=== PATIENT | male | born 1970 | race Caucasian/White ===

== ENCOUNTER 2024-05-05 00:13 | Inpatient (IN) | payer MEDICARE, MEDICAID, SELFPAY ==
--- NOTE | 2024-05-05 | ECG_ITS ---
Test Reason : AMS Blood Pressure : */* mmHG Vent. Rate : 71 BPM Atrial Rate : 71 BPM P-R Int : 140 ms QRS Dur : 98 ms QT Int : 444 ms P-R-T Axes : 84 85 80 degrees QTcB Int : 482 ms Normal sinus rhythm Prolonged QT Abnormal ECG No previous ECGs available Referred By: Generic ED Physician Electronically Signed By: Handy Church
[2024-05-05 00:17] VITALS: BP 164/95; PULSE 80; O2SAT 100
[2024-05-05 00:21] VITALS: BP 158/99; PULSE 68; RESP 18; TEMP 36.4; O2SAT 100; BMI 19.0
--- NOTE | 2024-05-05 01:06 | PC.NURSE ---
pt refusing to provide labs or urine. not oriented to place/ situation. not cooperative when asked questions by staff. would not allow IV to be removed, yells you can take this out when you tell me who i am MD at bedside. pt states he is the dark lord and needs to go to the [facility] to fulfil his role...? pt escorted to the POD, IV removed, exchange operator completed
--- NOTE | 2024-05-05 01:15 | PC.NURSE ---
Patient brought to pod by security and nursing staff. Patient goes by The Dark Lord. and wanted to be brought to his [facility]. Patient subsequently brought to the behavioral health pod. Changed over into green brandon and belongings inventoried.
--- NOTE | 2024-05-05 01:20 | PC.NURSE ---
patient refues to give urine sample and states he needs to be taken to his [facility] immediately. Patient currently naked in room, refusing to wear brandon.
[2024-05-05 01:21] LABS: MANUAL DIFF FLAG NO
[2024-05-05 01:22] LABS: Basophils Absolute Auto 0.1 X10*3/uL (0.0-0.2); Basophils Percent Auto 0.6 % (0-2); Eosinophils Absolute Auto 0.2 X10*3/uL (0.0-0.4); Eosinophils Percent Auto 2.7 % (0-4); Hematocrit 39.5 % (42.0-52.0); Hemoglobin 13.9 g/dl (14.0-18.0); Imm Gran Abs Auto 0.03 X10*3/uL (0.00-0.03); Imm Gran Pct Auto 0.4 % (0.0-0.4); Lymphocytes Percent Auto 24.1 % (20-40); Mean Corpuscular HGB Conc 35.2 g/dl (31.0-36.0); Mean Corpuscular Hemoglobin 33.9 pg (27.0-33.0); Mean Corpuscular Volume 96.3 fL (80.0-98.0); Mean Platelet Volume 8.8 fL (9.4-12.4); Monocytes Percent Auto 12.3 % (2-11); Neutrophils Absolute Auto 5.1 x10*3/uL (2.0-8.3); Neutrophils Percent Auto 59.9 % (45-73); Platelet Count 228 X10*3/uL (160-400); Red Cell Distribution Width 12.1 % (11.0-16.0); White Blood Count 8.5 X10*3/uL (4.8-10.8)
--- NOTE | 2024-05-05 01:32 | PC.NURSE ---
Stefani non-compliant, refusing to wear clothes, refusing to stay in room due to being non-clothed. IM's administered in right and left deltoids. Patient at this time will not stay in his room, security assisted with holding of the patient for safety of staff. Security also assisted in getting patient into room and giving food and hydration. Currently as of 015 patient is in room but naked.
[2024-05-05] MEDS: Haloperidol Lactate 5 MG/ML VIAL IM (01:34)
[2024-05-05] MEDS: diphenhydrAMINE HCL 50 MG/ML VIAL IM (01:34)
[2024-05-05] MEDS: LORazepam 2 MG/ML VIAL IM (01:34)
[2024-05-05 01:44] LABS: Troponin-I High Sensitivity 3.8 ng/L (<3.5-35.0)
--- NOTE | 2024-05-05 01:45 | PC.NURSE ---
patient belongings in locker 3
[2024-05-05 01:48] LABS: Alanine Aminotransferase 22 U/L (0-40); Alkaline Phosphatase 63 U/L (39-117); Anion Gap 14 (12-20); Aspartate Amino Transferase 63 U/L (5-37); Bilirubin Total 1.1 mg/dL (0.0-1.0); Blood Urea Nitrogen 17 mg/dL (9-16); Carbon Dioxide 25 mmol/L (22-29); Chloride 105 mmol/L (96-108); Creatinine Clr Calc Pharmacy 100.7; Estimated Glomerular Filt Rate > 60; Ethanol < 10 mg/dL; Glucose Random 86 mg/dL (60-115); Sodium 140 mmol/L (135-145); Total Protein 7.7 g/dL (6.5-8.0)
[2024-05-05 01:52] LABS: Acetaminophen LAB < 3 mcg/mL (<30); Salicylate < 5.0 mg/dL (15-30)
--- NOTE | 2024-05-05 02:31 | ED_ITS ---
HPI - Psych General Chief Complaint: Psychiatric Symptoms Stated Complaint: AMS Time Seen by Provider: 05/05/24 01:00 Source: EMS Mode of arrival: EMS Limitations: other ( Delusional) History of Present Illness ED Provider: Dr. Sara Tellez HPI Narrative: patient comes to the emergency room via ambulance. Patient was found in [facility] [address] patient was not answering questions appropriately. per EMS, the patient reported that he has not taking his medications for bipolar disorder. Patient denies drug use. Denies SI or HI. When I spoke to the patient, patient states that he does not want to be called Chandrakant, patient states that he is the dark lord and is requesting that we take him to his [facility]. overall, patient can not give a significant history, patient is very delusional, talking in tangents and not making any sense Related Data Allergies Allergy/AdvReac Type Severity Reaction Status Date / Time No Known Allergies Allergy Verified 05/05/24 00:24 Review of Systems 2 Review of Systems: Yes Other [facility] Past Medical History Medical History (Updated 05/05/24 @ 02:41 by Sara Tellez MD) Bipolar 1 disorder Physical Exam 2 Vital Signs: Vital Signs: Last Vital Signs Temp 97.5 F 05/05/24 00:21 Pulse 68 05/05/24 00:21 Resp 18 05/05/24 00:21 BP 158/99 H 05/05/24 00:21 Pulse Ox 100 05/05/24 00:21 O2 Del Method Room Air 05/05/24 00:21 BMI result Body Mass Index 19.0 Const: Other: Appearance: Alert. staring into the hyde or the roof Eyes: Pupils equal, round and reactive to light. ENT: Pharynx normal. Neck: Normal inspection. Neck supple. No lymph nodes noted. No crepitus CVS: Normal heart rate and rhythm. Pulses normal. Normal S1 and S2 Respiratory: No respiratory distress. Breath sounds normal. No Wheezing. No rales Abdomen: Soft and nontender. No rigidity. No distention. Skin: Skin warm and dry. Normal skin color. Normal skin turgor. Extremities: No lower extremity edema. No Lacerations. No Rash Neuro: Oriented X 3. No motor deficit. No sensory deficit. Moving all extremities. No slurred speech. CN 2 through 12 grossly intact Psych: calm, bizarre affect Medications Administered Discontinued Medications Generic Name Dose Route Start Last Admin Trade Name Teetee PRN Reason Stop Dose Admin Diphenhydramine HCl 50 mg 05/05/24 01:26 05/05/24 01:34 Diphenhydramine Hcl 50 Mg/Ml Vial IM 05/05/24 01:27 50 mg ONCE ONE Administration Haloperidol Lactate 5 mg 05/05/24 01:27 05/05/24 01:34 Haloperidol Lactate 5 Mg/Ml Vial IM 05/05/24 01:28 5 mg STAT STA Administration Lorazepam 2 mg 05/05/24 01:27 05/05/24 01:34 Lorazepam 2 Mg/Ml Vial IM 05/05/24 01:28 2 mg STAT STA Administration Medical Decision Making Medical Decision Making [facility] Narrative: on arrival, patient refused any labs. Patient is only request was to be taken to his [facility] when patient was in the [facility] pod, patient insisted on getting naked and walking around uncovered pick as he needed to be freed, patient refills closing. Eventually, patient was given IM Haldol, Ativan and Benadryl. Patient was agreeable to get IM meds. patient allowed the text to drop what. So far we do not have urine. no significant abnormality in patient's hematology and chemistry, ETOH level negative, urine toxicology pending care team consult pending Patient is on a Section 12. Patient is clearly significantly decompensated and will need inpatient level of care Differential Diagnosis Differential Diagnoses: The differential diagnosis associated with the presentation includes ( bipolar, schizophrenia, delusional) Admission/Observation Consideration of admission/observation: Escalation of care including admission/observation considered ( patient will need inpatient level of care) Lab Data [facility] Lab Attestation statement: I reviewed the patient's lab results. 05/05/24 01:17 05/05/24 01:17 Labs: Lab Results 05/05/24 05/05/24 Range/Units 01:16 01:17 WBC 8.5 (4.8-10.8) X10*3/uL RBC 4.10 L (4.60-5.80) X10*6/uL Hgb 13.9 L (14.0-18.0) g/dl Hct 39.5 L (42.0-52.0) % MCV 96.3 (80.0-98.0) fL MCH 33.9 H (27.0-33.0) pg MCHC 35.2 (31.0-36.0) g/dl RDW 12.1 (11.0-16.0) % Plt Count 228 (160-400) X10*3/uL MPV 8.8 L (9.4-12.4) fL Immature Gran % (Auto) 0.4 (0.0-0.4) % Neut % (Auto) 59.9 (45-73) % Lymph % (Auto) 24.1 (20-40) % [place] % (Auto) 12.3 H (2-11) % Eos % (Auto) 2.7 (0-4) % Baso % (Auto) 0.6 (0-2) % Lymph # (Auto) 2.0 (1.2-4.9) X10*3/uL [place] # (Auto) 1.0 (0.1-1.2) X10*3/uL Eos # (Auto) 0.2 (0.0-0.4) X10*3/uL Baso # (Auto) 0.1 (0.0-0.2) X10*3/uL Abs Immat Gran (auto) 0.03 (0.00-0.03) X10*3/uL Absolute Neuts (auto) 5.1 (2.0-8.3) x10*3/uL Absolute Nucleated RBC 0.000 (0.0-0.012) X10*3/uL Nucleated RBC % (auto) 0.0 (0.0-0.2) /100WBC Sodium 140 (135-145) mmol/L Potassium 4.0 (3.3-5.1) mmol/L Chloride 105 (96-108) mmol/L Carbon Dioxide 25 (22-29) mmol/L Anion Gap 14 (12-20) BUN 17 H (9-16) mg/dL Creatinine 0.77 (0.5-1.4) mg/dL Estim Creat Clear Calc 100.7 Estimated GFR > 60 Random Glucose 86 (60-115) mg/dL Calcium 9.0 (8.4-10.2) mg/dL Total Bilirubin 1.1 H (0.0-1.0) mg/dL AST 63 H (5-37) U/L ALT 22 (0-40) U/L Alkaline Phosphatase 63 (39-117) U/L Troponin I High Sens 3.8 (<3.5-35.0) ng/L Total Protein 7.7 (6.5-8.0) g/dL Albumin 4.0 (3.5-5.0) g/dL Salicylates < 5.0 L (15-30) mg/dL Acetaminophen < 3 (<30) mcg/mL Ethyl Alcohol < 10 mg/dL Critical Care Time Critical Care Time Critical Care Time: Yes Total Critical Care Time: 60 Attestation: I have personally provided critical care time. Time includes review of lab data, radiology results, discussion with consultants, and monitoring for potential decompensation. Intervention performed as documented. Discharge Plan Discharge Clinical Impression: Delusional ideas Patient Disposition: Still a Patient Interventions: Guthrie-Suicide Risk Severity Scale Last Done: 05/05/24 01:23 Print Language: Argentine
--- NOTE | 2024-05-05 02:36 | PC.NURSE ---
patient resting on Bed 3: non labored respirations with chest rise and fall noted. Will continue to monitor
[2024-05-05 05:35] VITALS: RESP 20
--- NOTE | 2024-05-05 05:36 | PC.NURSE ---
patient refused vital signs
[2024-05-05 05:43] LABS: Appearance Urine Clear; Color Urine Yellow; Glucose Urine UA Negative (Negative); Leukocyte Esterase Urine Negative (Negative); Nitrite Urine Negative (Negative); PH 6.5 (5.0-9.0); Specific Gravity - Urine 1.015 (1.005-1.025); UMIC TRIGGER UACC YES; Urine Blood Negative (Negative); Urine Ketones Negative (Negative); Urine Protein 30 (1+) mg/dL (Neg-Trace)
[2024-05-05 06:00] LABS: Amphetamine Screen Urine Not Detected (Not Detect); Barbiturates, Urine Not Detected (Not Detect); Benzodiazepines Screen Urine Not Detected (Not Detect); Buprenorphine Scr Not Detected (Not Detect); Cannabinoid Screen Urine Not Detected (Not Detect); Cocaine Screen Urine POSITIVE (Not Detect); Fentanyl, urine Not Detected (Not Detect); Methadone Screen, Urine Not Detected (Not Detect); Opiate Screen Urine Not Detected (Not Detect); Oxycodone Screen Urine Not Detected (Not Detect); Phencyclidine Screen Urine Not Detected (Not Detect)
[2024-05-05 06:01] LABS: Bacteria Urine None Seen (None Seen); RBC Urine 0-2 /HPF (0-2); Squamous Epithelial Cell Urine 0-2 /HPF (0-2); WBC Urine 0-5 /HPF (0-5)
--- NOTE | 2024-05-05 09:00 | ECG_ITS ---
Test Reason : CHECK PROLONG QT Blood Pressure : */* mmHG Vent. Rate : 79 BPM Atrial Rate : 79 BPM P-R Int : 126 ms QRS Dur : 96 ms QT Int : 410 ms P-R-T Axes : 83 89 88 degrees QTcB Int : 470 ms Normal sinus rhythm Normal ECG When compared with ECG of 05-May-2024 00:32, No significant change was found Referred By: Bhargavi Cash Electronically Signed By: Handy Church
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
--- NOTE | 2024-05-05 10:50 | MHC.CARE ---
Pt meets the criteria for IPLOC. Section 12a in chart. Provider in agreement.
--- NOTE | 2024-05-05 12:33 | PHA.MEDREC ---
Addendum entered by Sridhar Min [facility] 05/05/24 12:55: MED REC CHECKED BY [facility] Original Note: Pharmacy Consult ? Medication Reconciliation Pharmacy reviewed med rec done by nursing. Claims matches what is confirmed.
--- OUTSIDE RECORDS SUMMARY | 2024-05-05 13:09 | XMS_ITS | Clinical Summary ---
Author Organization [facility] [place] [address] Care Team Providers Care Jewel Corner Brushing Machine Operator Name Role Phone Unknown Primary Care Provider Unavailabl e Social History Tobacco Use Types Packs/Day Years Used Date Smoking Tobacco: Never Assessed Sex and Gender Information Value Date Recorded Sex Assigned at Not on file Gender Identity Not on file Sexual Orientation Not on file Plan of Treatment Health Maintenance Due Date Last Done Comments CT Colonography 1972 Colonoscopy 1972 Colorectal Cancer Screening 1972 FIT DNA 1972 FIT 1972 Sigmoidoscopy (10 year) with FIT yearly 1972 Sigmoidoscopy 1972 HIV screen 1990 Hepatitis C Screening 1990 Lipid Screening 1990 Hepatitis B vaccine (0-59 yrs) (1) 1991 Tetanus/Diphtheria/Pertussis Vaccines (1 - Tdap) 04/27 Pneumoccocal Vaccine: 50+ (1 of 1 - PCV) 2022 Zoster vaccine (1 of 2) 2022 Covid-19 Vaccine (1 - 2023- season) 2023 Influenza (Flu) vaccine (1 o f 1 - Influenza standard series) 11/08/2023 Care Teams Jewel Corner Brushing Machine Operator Relationship Specialty Start Date End Date Unknown None PCP - General 07/07/22
[2024-05-05 13:26] VITALS: BP 140/88; PULSE 76; RESP 16; TEMP 37; O2SAT 99
--- NOTE | 2024-05-05 13:34 | PC.NURSE ---
Family is here visiting gave his sister keys and wallet per security.
--- NOTE | 2024-05-05 14:04 | PC.NURSE ---
Assumed care of patient at 1345, patient appears to be in no apparent distress at this time, family member at bedside. Patient is calm and cooperative. Awaiting transport to floor
[2024-05-05 15:54] VITALS: BP 131/76; PULSE 102; RESP 18; TEMP 37.7; BMI 19.9
[2024-05-05] MEDS: Nicotine Polacrilex 2 MG GUM 4 MG BUCCAL (16:06)
[2024-05-05] MEDS: Nicotine 21 MG PATCH.TD24 TRANSDERMA (16:07)
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
--- NOTE | 2024-05-05 17:15 | PC.NURSE ---
Pt reported nicotine use. Smoking consult order in place and NRT ordered. Pt refused the Influenza vaccine.
[2024-05-05 19:46] VITALS: BP 131/79; PULSE 80; TEMP 38.3; O2SAT 97
[2024-05-05] MEDS: QUEtiapine Fumarate 50 MG TABLET PO (20:42)
[2024-05-05] MEDS: OLANZapine 5 MG TABLET PO (20:42)
[2024-05-06 08:00] VITALS: BP 160/88; PULSE 72; TEMP 37.3; O2SAT 98
[2024-05-06] MEDS: lamoTRIgine 25 MG TABLET PO (09:07)
--- NOTE | 2024-05-06 11:16 | HO.PSYADMNOT ---
HPI Date of Service: 05/06/24 Chief Complaint: Disorganized Sources of Information: patient interviewed, chart reviewed and crisis/core team assessment reviewed HPI Subjective Notes: Gill Warning, Conditional Voluntary and 3 Day Healthcare Proxy: No Guardianship: No Medical Problems Affecting Mental Status: No Narrative: 54 yo male, history of schizoaffective disorder, bipolar type, from [place], [place] [address] staring at a truck. Pt was disoriented, delusional, tangential, hypersexual. Crisis team in [place] verifies they know pt and that he will not take medicine and has not taken any medicine in several months. Pt is significantly thin and clearly has not been caring for himself. Pt lives with his mother in [place]. Reports he has visions, messages and dreams of different things, medicine makes them not available, so he chooses no medicine. Pt adds that he thinks he may be Lucifer. He does not want to be in hospital as it impeeds his freedom to do what he wants to do. Past Psychiatric History: IP: +hx- BBR, OP: unclear SA: affirms Bipolar diagnosed in 2014 Medical Evaluation Reviewed: Yes [facility] Medical History (Updated 05/06/24 @ 18:40 by Bhargavi Cash APRN) Schizoaffective disorder, bipolar type Bipolar 1 disorder Social History: Born in [place], lived in [place] and [place] with family. Raised by both parents and brother. Parents GED. Moved to [place] and lives on the [place] with others Never , no children Substance History: positive cocaine tox Diagnostics Vital Signs (24Hr): Vital Signs - 24 hr 05/05/24 13:26 05/05/24 15:54 05/05/24 19:46 Temperature 98.6 F 99.8 F 100.9 F H Pulse Rate 76 102 H 80 Respiratory Rate 16 18 Blood Pressure 140/88 H 131/76 131/79 Pulse Oximetry 99 97 Oxygen Delivery Method Room Air Room Air Oxygen Flow Rate 97 05/06/24 08:00 Temperature 99.1 F Pulse Rate 72 Respiratory Rate Blood Pressure 160/88 H Pulse Oximetry 98 Oxygen Delivery Method Room Air Oxygen Flow Rate BMI result Body Mass Index 19.9 Labs 05/05/24 01:17 05/05/24 01:17 Labs: Laboratory Results - last 48 hr 02/05/05/24 05/05/24 01:16 01:17 05:36 WBC 8.5 RBC 4.10 L Hgb 13.9 L Hct 39.5 L MCV 96.3 MCH 33.9 H MCHC 35.2 RDW 12.1 Plt Count 228 MPV 8.8 L Immature Gran % (Auto) 0.4 Neut % (Auto) 59.9 Lymph % (Auto) 24.1 [place] % (Auto) 12.3 H Eos % (Auto) 2.7 Baso % (Auto) 0.6 Lymph # (Auto) 2.0 [place] # (Auto) 1.0 Eos # (Auto) 0.2 Baso # (Auto) 0.1 Abs Immat Gran (auto) 0.03 Absolute Neuts (auto) 5.1 Absolute Nucleated RBC 0.000 Nucleated RBC % (auto) 0.0 Sodium 140 Potassium 4.0 Chloride 105 Carbon Dioxide 25 Anion Gap 14 BUN 17 H Creatinine 0.77 Estim Creat Clear Calc 100.7 Estimated GFR > 60 Random Glucose 86 Calcium 9.0 Total Bilirubin 1.1 H AST 63 H ALT 22 Alkaline Phosphatase 63 Troponin I High Sens 3.8 Total Protein 7.7 Albumin 4.0 Urine Color Yellow Urine Appearance Clear Urine pH 6.5 Ur Specific Wilson 1.015 Urine Protein 30 (1+) H Urine Glucose (UA) Negative Urine Ketones Negative Urine Blood Negative Urine Nitrite Negative Ur Leukocyte Esterase Negative Urine RBC 0-2 Urine WBC 0-5 Ur Squamous Epith Cells 0-2 Urine Bacteria None Seen Hyaline Casts 3-5 Salicylates < 5.0 L Urine Opiates Screen Not Detected Ur Buprenorphine Scrn Not Detected Ur Oxycodone Screen Not Detected Urine Methadone Screen Not Detected Urine Fentanyl Screen Not Detected Acetaminophen < 3 Ur Barbiturates Screen Not Detected Ur Phencyclidine Scrn Not Detected Ur Amphetamines Screen Not Detected U Benzodiazepines Scrn Not Detected Urine Cocaine Screen POSITIVE H U Marijuana (THC) Screen Not Detected Ethyl Alcohol < 10 Meds/Allergies Meds Home Medications ?Medication ?Instructions ?Recorded ?Confirmed ?Type bupropion HCl 300 mg 24 hr tablet, 300 mg PO DAILY 05/05/24 05/05/24 History extended release lamotrigine 25 mg tablet 25 mg DAILY 05/05/24 05/05/24 History quetiapine 50 mg tablet 50 mg PO BEDTIME sleep disorder 05/05/24 05/05/24 History risperidone microspheres 50 mg/2 50 mg IM Q2W 05/05/24 05/05/24 History mL intramuscular susp,ext release (Risperdal Consta) Allergies Allergies Allergy/AdvReac Type Severity Reaction Status Date / Time No Known Allergies Allergy Verified 05/05/24 00:24 Mental Status Exam Mental Status Exam Patient Appearance: Fatigued Patient Orientation: Person, Place and Situation Level of Consciousness: Alert Patient Behavior: Talkative and Resistive to Care Mood Description: Constricted Affect Description: Constricted Patient Cognition Impaired: No Ability to Follow Directions: Good Speech Pattern: Spontaneous Speech Memory Description: Remote Impaired Hallucinations: Auditory and Visual Delusions: Paranoid Ideation, Grandiose and Present Thought Process: Illogical and Distracted Thought Content: positive for Flight of Ideas, positive for Perseveration, positive for Tangential, positive for Disorganized and positive for Evasive Depressive Symptoms: Difficulty Sleeping Judgement: Poor Assessment & Plan Assessment & Plan (1) Schizoaffective disorder, bipolar type: Status: Acute Code(s): F25.0 - Schizoaffective disorder, bipolar type Plan Admit, CV, 3 day notice,15 minute checks Attempt alliance Meds are ordered, pt reports he has no interest Collateral contact Diagnostics as needed Patient educated on: medication risk/benefits and therapeutic strategies Reason for continued inpatient stay Substantial Risk for: rapid decompensation Statement Statement: I have reviewed the history and physical and performed a pertinent examination on my patient. No changes have occurred unless specified. If the History and Physical was not performed prior to admission, the Hospitalist's service will be consulted for completing the admission physical. Time Spent With Patient Time: Total time managing care of this patient today ____ minutes.
[2024-05-06] MEDS: Nicotine 21 MG PATCH.TD24 TRANSDERMA (18:14)
[2024-05-06 20:00] VITALS: BP 134/63; PULSE 75; TEMP 35.9; O2SAT 97
[2024-05-06] MEDS: QUEtiapine Fumarate 50 MG TABLET PO (21:11)
[2024-05-07 08:00] VITALS: BP 127/73; PULSE 69; RESP 16; TEMP 36.6; O2SAT 98
[2024-05-07] MEDS: lamoTRIgine 25 MG TABLET PO (10:56)
[2024-05-07] MEDS: Nicotine Polacrilex 2 MG GUM 4 MG BUCCAL (10:56)
[2024-05-07] MEDS: Nicotine 21 MG PATCH.TD24 TRANSDERMA (10:56)
[2024-05-07 11:36] LABS: Cholesterol 115 mg/dL (<200); HDL Cholesterol 52 mg/dL (>40); LDL Cholesterol Calculated 54 mg/dL (<100); Triglycerides 49 mg/dL (<150)
[2024-05-07 11:56] LABS: Free T4 (Free Thyroxine) 1.12 ng/dL (0.71-1.85); TSH reflex Free T4 0.53 uIU/mL (0.32-4.0)
[2024-05-07 12:05] LABS: Folate 6.7 ng/mL (> or = 4.0); Vitamin B12 401 pg/mL (200-900)
[2024-05-07 12:17] LABS: Estimated Average Glucose 97 mg/dL; Hemoglobin A1C 115.8845 umol/L
--- NOTE | 2024-05-07 18:14 | HO.PSYCHPN ---
Subjective Subjective Date of Service: 05/07/24 Reason For Visit: Disorganized Interim History: no questions or complaints. per staff, manic/hypersexual. refusing meds. sleeping well. Mental Status Exam Mental Status Exam Patient Appearance: Fatigued Patient Orientation: Person, Place and Situation Level of Consciousness: Alert Patient Behavior: Resistive to Care Mood Description: Constricted Affect Description: Constricted Patient Cognition Impaired: No Ability to Follow Directions: Good Speech Pattern: Spontaneous Speech Memory Description: Remote Impaired Hallucinations: Auditory and Visual Delusions: Paranoid Ideation, Grandiose and Present Thought Process: Illogical and Distracted Thought Content: positive for [place] Judgement: Poor Diagnostics Vital Signs (24Hr): Vital Signs - 24 hr 05/06/24 20:00 05/07/24 08:00 Temperature 96.7 F L 97.9 F Pulse Rate 75 69 Respiratory Rate 16 Blood Pressure 134/63 127/73 Pulse Oximetry 97 98 Oxygen Delivery Method Room Air BMI result Body Mass Index 19.9 Labs 05/05/24 01:17 05/05/24 01:17 Labs: Laboratory Results - last 48 hr 05/07/24 10:54 Estimat Average Glucose 97 Hemoglobin A1c % 5.0 Magnesium 2.0 Triglycerides 49 Cholesterol 115 LDL Cholesterol, Calc 54 HDL Cholesterol 52 Vitamin B12 401 Folate 6.7 TSH 0.53 Free T4 1.12 Medications Medications Current Medications Acetaminophen (Acetaminophen 325 Mg Tablet) 650 mg PO Q6H PRN PRN Reason: Headache/Pain, Scale 1-10 Al Hydroxide/Mg Hydroxide (Magnesium Hydrox/Alum Hydrox 30 Ml Oral.Susp) 30 ml PO Q6H PRN PRN Reason: Heartburn/Nausea Al Hydroxide/Mg Hydroxide (Magnesium Hydrox/Alum Hydrox 30 Ml Oral.Susp) 30 ml PO Q6H PRN PRN Reason: Heartburn/Nausea Hydroxyzine HCl (Hydroxyzine Hcl 25 Mg Tablet) 25 mg PO Q6H PRN PRN Reason: mild anxiety Lamotrigine (Lamotrigine 25 Mg Tablet) 25 mg PO DAILY DILLON Last Admin: 05/07/24 10:56 Dose: 25 mg Magnesium Hydroxide (Milk Of Magnesia 30 Ml Oral.Susp) 30 ml PO DAILY PRN PRN Reason: Constipation Magnesium Hydroxide (Milk Of Magnesia 30 Ml Oral.Susp) 30 ml PO DAILY PRN PRN Reason: Constipation Nicotine (Nicotine 21 Mg Patch.Td24) 21 mg TRANSDERMA DAILY PRN PRN Reason: smoking cessation Last Admin: 05/07/24 10:56 Dose: 21 mg Nicotine Polacrilex (Nicotine Polacrilex 2 Mg Gum) 4 mg BUCCAL Q2H PRN PRN Reason: Nicotine Cravings Last Admin: 05/07/24 10:56 Dose: 4 mg Olanzapine (Olanzapine 5 Mg Tablet) 5 mg PO TID PRN PRN Reason: agitation Last Admin: 05/05/24 20:42 Dose: 5 mg Quetiapine Fumarate (Quetiapine Fumarate 50 Mg Tablet) 50 mg PO BEDTIME DILLON Last Admin: 05/06/24 21:11 Dose: 50 mg Trazodone HCl (Trazodone Hcl 50 Mg Tablet) 50 mg PO BEDTIME [id number] PRN PRN Reason: Insomnia Allergies Allergies Allergy/AdvReac Type Severity Reaction Status Date / Time No Known Allergies Allergy Verified 05/05/24 00:24 Assessment & Plan Assessment & Plan (1) Schizoaffective disorder, bipolar type: Status: Acute Code(s): F25.0 - Schizoaffective disorder, bipolar type Plan Admit, CV, 3 day notice,15 minute checks Attempt alliance Meds are ordered, pt reports he has no interest Collateral contact Diagnostics as needed 05/07: no disruptive behaviors since admission. refusing medications. sleeping. continue to offer medications. Reason for continued inpatient stay Substantial Risk for: inability to function and rapid decompensation Time Spent With Patient Time: Total time managing care of this patient today ____ minutes.
[2024-05-07 20:00] VITALS: RESP 16
[2024-05-07] MEDS: QUEtiapine Fumarate 50 MG TABLET PO (20:55)
[2024-05-08 08:00] VITALS: BP 136/80; PULSE 68; RESP 14; TEMP 37.3; O2SAT 99
[2024-05-08] MEDS: Nicotine 21 MG PATCH.TD24 TRANSDERMA (09:06)
[2024-05-08] MEDS: lamoTRIgine 25 MG TABLET PO (09:06)
--- NOTE | 2024-05-08 15:55 | HO.PSYCHPN ---
Subjective Subjective Date of Service: 05/08/24 Reason For Visit: Disorganized Interim History: sleeping, rousable. no questions or complaints. per staff, taking medications. c/o shoulder pain. Mental Status Exam Mental Status Exam Patient Appearance: Fatigued Patient Orientation: Person, Place and Situation Level of Consciousness: Alert Mood Description: Constricted Affect Description: Constricted Patient Cognition Impaired: No Ability to Follow Directions: Good Speech Pattern: Spontaneous Speech Memory Description: Remote Impaired Hallucinations: Auditory and Visual Delusions: Paranoid Ideation, Grandiose and Present Thought Process: Illogical and Distracted Thought Content: positive for [place] Judgement: Poor Diagnostics Vital Signs (24Hr): Vital Signs - 24 hr 05/07/24 20:00 05/08/24 08:00 Temperature 99.1 F Pulse Rate 68 Respiratory Rate 16 14 Blood Pressure 136/80 Pulse Oximetry 99 Oxygen Delivery Method Room Air BMI result Body Mass Index 19.9 Labs 05/05/24 01:17 05/05/24 01:17 Labs: Laboratory Results - last 48 hr 05/07/24 10:54 Estimat Average Glucose 97 Hemoglobin A1c % 5.0 Magnesium 2.0 Triglycerides 49 Cholesterol 115 LDL Cholesterol, Calc 54 HDL Cholesterol 52 Vitamin B12 401 Folate 6.7 TSH 0.53 Free T4 1.12 Medications Medications Current Medications Acetaminophen (Acetaminophen 325 Mg Tablet) 650 mg PO Q6H PRN PRN Reason: Headache/Pain, Scale 1-10 Al Hydroxide/Mg Hydroxide (Magnesium Hydrox/Alum Hydrox 30 Ml Oral.Susp) 30 ml PO Q6H PRN PRN Reason: Heartburn/Nausea Al Hydroxide/Mg Hydroxide (Magnesium Hydrox/Alum Hydrox 30 Ml Oral.Susp) 30 ml PO Q6H PRN PRN Reason: Heartburn/Nausea Hydroxyzine HCl (Hydroxyzine Hcl 25 Mg Tablet) 25 mg PO Q6H PRN PRN Reason: mild anxiety Lamotrigine (Lamotrigine 25 Mg Tablet) 25 mg PO DAILY ON LICENSE OF [facility] Last Admin: 05/08/24 09:06 Dose: 25 mg Magnesium Hydroxide (Milk Of Magnesia 30 Ml Oral.Susp) 30 ml PO DAILY PRN PRN Reason: Constipation Magnesium Hydroxide (Milk Of Magnesia 30 Ml Oral.Susp) 30 ml PO DAILY PRN PRN Reason: Constipation Nicotine (Nicotine 21 Mg Patch.Td24) 21 mg TRANSDERMA DAILY PRN PRN Reason: smoking cessation Last Admin: 05/08/24 09:06 Dose: 21 mg Nicotine Polacrilex (Nicotine Polacrilex 2 Mg Gum) 4 mg BUCCAL Q2H PRN PRN Reason: Nicotine Cravings Last Admin: 05/07/24 10:56 Dose: 4 mg Olanzapine (Olanzapine 5 Mg Tablet) 5 mg PO TID PRN PRN Reason: agitation Last Admin: 05/05/24 20:42 Dose: 5 mg Quetiapine Fumarate (Quetiapine Fumarate 50 Mg Tablet) 50 mg PO BEDTIME DILLON Last Admin: 05/07/24 20:55 Dose: 50 mg Trazodone HCl (Trazodone Hcl 50 Mg Tablet) 50 mg PO BEDTIME MRX1 PRN PRN Reason: Insomnia Allergies Allergies Allergy/AdvReac Type Severity Reaction Status Date / Time No Known Allergies Allergy Verified 05/05/24 00:24 Assessment & Plan Assessment & Plan (1) Schizoaffective disorder, bipolar type: Status: Acute Code(s): F25.0 - Schizoaffective disorder, bipolar type Plan Admit, CV, 3 day notice,15 minute checks Attempt alliance Meds are ordered, pt reports he has no interest Collateral contact Diagnostics as needed 3/1: no disruptive behaviors since admission. refusing medications. sleeping. continue to offer medications. 3/2: same presentation as yesterday, although per RN report now taking meds. c/o shoulder pain, start lidocaine patch and ibu PRN. otherwise continue current mgmt. Reason for continued inpatient stay Substantial Risk for: inability to function Time Spent With Patient Time: Total time managing care of this patient today ____ minutes.
[2024-05-08 20:00] VITALS: BP 125/70; PULSE 82; TEMP 36.9; O2SAT 97
[2024-05-08] MEDS: QUEtiapine Fumarate 50 MG TABLET PO (21:32)
[2024-05-08] MEDS: traZODone HCL 50 MG TABLET PO (21:43)
[2024-05-08] MEDS: Ibuprofen 600 MG TABLET PO (21:43)
[2024-05-08] MEDS: Lidocaine 4 % Patch ADH..PATCH 1 PATCH TRANSDERMA (21:44)
[2024-05-09] MEDS: traZODone HCL 50 MG TABLET PO (01:48)
[2024-05-09 07:59] VITALS: BP 127/70; PULSE 87; TEMP 536.6; TEMP 998; O2SAT 98
[2024-05-09 08:31] VITALS: TEMP 36.9
[2024-05-09] MEDS: lamoTRIgine 25 MG TABLET PO (09:07)
[2024-05-09] MEDS: Acetaminophen 325 MG TABLET 650 MG PO ×2 (09:07→18:19)
--- NOTE | 2024-05-09 09:40 | HO.PSYCHPN ---
Subjective Subjective Date of Service: 05/09/24 Reason For Visit: Disorganized Subjective Notes: Conditional Voluntary and 3 Day Healthcare Proxy: No Guardianship: No Medical Problems Affecting Mental Status: No Interim History: Pt reports he is improved. I am OK, good really. He denies AH,VH, SI, HI. Taking medicine! He is prepared to leave, stating his family will come from [place] to drive him home. I have been gone long enough. I need to get back and help my mother . Reports sleep/appetite are appropriate. L shoulder with pain, declines eval, I think I slept on it wrong . Medication Compliance: Yes Side effects from medications: No Attending Groups: No Review of Systems Acute medical concerns: Yes L Shoulder pain Medical Review of Systems: unchanged Review of Systems Review of Systems L Shoulder pain Mental Status Exam Mental Status Exam Patient Appearance: Fatigued Patient Orientation: Person, Place, Time and Situation Level of Consciousness: Alert Patient Behavior: Talkative, Cooperative and Good Eye Contact Mood Description: Constricted Affect Description: Constricted Patient Cognition Impaired: No Ability to Follow Directions: Good Speech Pattern: Spontaneous Speech Memory Description: Remote Impaired Delusions: Present Thought Process: Distracted Thought Content: positive for [place], positive for Circumstantial, positive for Suicidal Ideation (deniea) and positive for Homicidal Ideation (denies) Judgement: Fair Diagnostics Vital Signs (24Hr): Vital Signs - 24 hr 05/08/24 20:00 05/09/24 07:59 05/09/24 08:31 Temperature 98.4 F 998 F H 98.5 F Pulse Rate 82 87 Blood Pressure 125/70 127/70 Pulse Oximetry 97 98 Oxygen Delivery Method Room Air Room Air BMI result Body Mass Index 19.9 Labs 05/05/24 01:17 05/05/24 01:17 Labs: Laboratory Results - last 48 hr 05/07/24 10:54 Estimat Average Glucose 97 Hemoglobin A1c % 5.0 Magnesium 2.0 Triglycerides 49 Cholesterol 115 LDL Cholesterol, Calc 54 HDL Cholesterol 52 Vitamin B12 401 Folate 6.7 TSH 0.53 Free T4 1.12 Medications Medications Current Medications Acetaminophen (Acetaminophen 325 Mg Tablet) 650 mg PO Q6H PRN PRN Reason: Headache/Pain, Scale 1-10 Last Admin: 05/09/24 09:07 Dose: 650 mg Al Hydroxide/Mg Hydroxide (Magnesium Hydrox/Alum Hydrox 30 Ml Oral.Susp) 30 ml PO Q6H PRN PRN Reason: Heartburn/Nausea Al Hydroxide/Mg Hydroxide (Magnesium Hydrox/Alum Hydrox 30 Ml Oral.Susp) 30 ml PO Q6H PRN PRN Reason: Heartburn/Nausea Hydroxyzine HCl (Hydroxyzine Hcl 25 Mg Tablet) 25 mg PO Q6H PRN PRN Reason: mild anxiety Ibuprofen (Ibuprofen 600 Mg Tablet) 600 mg PO Q6H PRN PRN Reason: shoulder pain Last Admin: 05/08/24 21:43 Dose: 600 mg Lamotrigine (Lamotrigine 25 Mg Tablet) 25 mg PO DAILY DILLON Last Admin: 05/09/24 09:07 Dose: 25 mg Lidocaine (Lidocaine 4 % Patch Adh..Patch) 1 patch TRANSDERMA DAILY PRN; Protocol PRN Reason: shoulder pain Last Admin: 05/08/24 21:44 Dose: 1 patch Magnesium Hydroxide (Milk Of Magnesia 30 Ml Oral.Susp) 30 ml PO DAILY PRN PRN Reason: Constipation Magnesium Hydroxide (Milk Of Magnesia 30 Ml Oral.Susp) 30 ml PO DAILY PRN PRN Reason: Constipation Nicotine (Nicotine 21 Mg Patch.Td24) 21 mg TRANSDERMA DAILY PRN PRN Reason: smoking cessation Last Admin: 05/08/24 09:06 Dose: 21 mg Nicotine Polacrilex (Nicotine Polacrilex 2 Mg Gum) 4 mg BUCCAL Q2H PRN PRN Reason: Nicotine Cravings Last Admin: 05/07/24 10:56 Dose: 4 mg Olanzapine (Olanzapine 5 Mg Tablet) 5 mg PO TID PRN PRN Reason: agitation Last Admin: 05/05/24 20:42 Dose: 5 mg Quetiapine Fumarate (Quetiapine Fumarate 50 Mg Tablet) 50 mg PO BEDTIME DILLON Last Admin: 05/08/24 21:32 Dose: 50 mg Trazodone HCl (Trazodone Hcl 50 Mg Tablet) 50 mg PO BEDTIME MRX1 PRN PRN Reason: Insomnia Last Admin: 05/09/24 01:48 Dose: 50 mg Allergies Allergies Allergy/AdvReac Type Severity Reaction Status Date / Time No Known Allergies Allergy Verified 05/05/24 00:24 Assessment & Plan Assessment & Plan (1) Schizoaffective disorder, bipolar type: Status: Acute Code(s): F25.0 - Schizoaffective disorder, bipolar type Plan Admit, CV, 3 day notice,15 minute checks Attempt [facility] Meds are ordered, pt reports he has no interest Collateral contact Diagnostics as needed 05/07: no disruptive behaviors since admission. refusing medications. sleeping. continue to offer medications. 05/08: same presentation as yesterday, although per RN report now taking meds. c/o shoulder pain, start lidocaine patch and ibu PRN. otherwise continue current mgmt. 05/09. Continue plan of care. DC 05/11. Reason for continued inpatient stay Substantial Risk for: rapid decompensation Time Spent With Patient Time: Total time managing care of this patient today ____ minutes.
[2024-05-09 19:49] VITALS: BP 138/77; PULSE 84; RESP 18; TEMP 37.2; O2SAT 98
[2024-05-10 08:51] VITALS: BP 130/74; PULSE 73; TEMP 37.7; O2SAT 97
[2024-05-10] MEDS: lamoTRIgine 25 MG TABLET PO (09:10)
--- NOTE | 2024-05-10 16:21 | HO.PSYCHPN ---
Subjective Subjective Date of Service: 05/10/24 Reason For Visit: Disorganized Subjective Notes: Conditional Voluntary and 3 Day Healthcare Proxy: No Guardianship: No Medical Problems Affecting Mental Status: No Interim History: Demanding to leave today. Three day notice expires 05/11/24. Team was using this time to coordinate pt's aftercare post discharge. Pt reported he had a court date 05/11. This he later told us was untrue. Review of meds with pt. He reports he rarely takes prescribed meds but I could call [facility] in [place] on [address] and send in what his prescriber last sent in, but I might not take it . Pt expressed gratitude for his treatment to the team. He reports understanding of why we are keeping him until 05/11 to make sure his out pt planning is complete. Call to [facility] [phone]. They identify Wellbutrin XL, Lamictal (never picked up), Olanzapine (never picked up), Prazosin (never picked up), Seroquel and Risperdal Consta 50 mg, 2 mg q 2 weeks, next dose due 05/17/24 as current regime. Medication Compliance: Intermittent Side effects from medications: No Attending Groups: No Review of Systems Acute medical concerns: No Review of Systems Review of Systems Left shoulder pain-declines eval Mental Status Exam Mental Status Exam Patient Appearance: Fatigued Patient Orientation: Person, Place, Time and Situation Level of Consciousness: Alert Patient Behavior: Talkative, Cooperative and Good Eye Contact Mood Description: Constricted Affect Description: Constricted Patient Cognition Impaired: No Ability to Follow Directions: Good Speech Pattern: Spontaneous Speech Memory Description: Remote Impaired Delusions: Present Thought Process: Distracted Thought Content: positive for [place], positive for Circumstantial, positive for Suicidal Ideation (denies) and positive for Homicidal Ideation (denies) Judgement: Fair Diagnostics Vital Signs (24Hr): Vital Signs - 24 hr 05/09/24 19:49 05/10/24 08:51 Temperature 98.9 F 100 F Pulse Rate 84 73 Respiratory Rate 18 Blood Pressure 138/77 130/74 Pulse Oximetry 98 97 Oxygen Delivery Method Room Air Room Air BMI result Body Mass Index 19.9 Labs 05/05/24 01:17 05/05/24 01:17 Medications Medications Current Medications Acetaminophen (Acetaminophen 325 Mg Tablet) 650 mg PO Q6H PRN PRN Reason: Headache/Pain, Scale 1-10 Last Admin: 05/09/24 18:19 Dose: 650 mg Al Hydroxide/Mg Hydroxide (Magnesium Hydrox/Alum Hydrox 30 Ml Oral.Susp) 30 ml PO Q6H PRN PRN Reason: Heartburn/Nausea Al Hydroxide/Mg Hydroxide (Magnesium Hydrox/Alum Hydrox 30 Ml Oral.Susp) 30 ml PO Q6H PRN PRN Reason: Heartburn/Nausea Hydroxyzine HCl (Hydroxyzine Hcl 25 Mg Tablet) 25 mg PO Q6H PRN PRN Reason: mild anxiety Ibuprofen (Ibuprofen 600 Mg Tablet) 600 mg PO Q6H PRN PRN Reason: shoulder pain Last Admin: 05/08/24 21:43 Dose: 600 mg Lamotrigine (Lamotrigine 25 Mg Tablet) 25 mg PO DAILY DILLON Last Admin: 05/10/24 09:10 Dose: 25 mg Lidocaine (Lidocaine 4 % Patch Adh..Patch) 1 patch TRANSDERMA DAILY PRN; Protocol PRN Reason: shoulder pain Last Admin: 05/08/24 21:44 Dose: 1 patch Magnesium Hydroxide (Milk Of Magnesia 30 Ml Oral.Susp) 30 ml PO DAILY PRN PRN Reason: Constipation Magnesium Hydroxide (Milk Of Magnesia 30 Ml Oral.Susp) 30 ml PO DAILY PRN PRN Reason: Constipation Nicotine (Nicotine 21 Mg Patch.Td24) 21 mg TRANSDERMA DAILY PRN PRN Reason: smoking cessation Last Admin: 05/08/24 09:06 Dose: 21 mg Nicotine Polacrilex (Nicotine Polacrilex 2 Mg Gum) 4 mg BUCCAL Q2H PRN PRN Reason: Nicotine Cravings Last Admin: 05/07/24 10:56 Dose: 4 mg Olanzapine (Olanzapine 5 Mg Tablet) 5 mg PO TID PRN PRN Reason: agitation Last Admin: 05/05/24 20:42 Dose: 5 mg Quetiapine Fumarate (Quetiapine Fumarate 50 Mg Tablet) 50 mg PO BEDTIME DILLON Last Admin: 05/09/24 21:45 Dose: Not Given Trazodone HCl (Trazodone Hcl 50 Mg Tablet) 50 mg PO BEDTIME MRX1 PRN PRN Reason: Insomnia Last Admin: 05/09/24 01:48 Dose: 50 mg Allergies Allergies Allergy/AdvReac Type Severity Reaction Status Date / Time No Known Allergies Allergy Verified 05/05/24 00:24 Assessment & Plan Assessment & Plan (1) Schizoaffective disorder, bipolar type: Status: Acute Code(s): F25.0 - Schizoaffective disorder, bipolar type Plan Admit, CV, 3 day notice,15 minute checks Attempt [facility] Meds are ordered, pt reports he has no interest Collateral contact Diagnostics as needed 05/07: no disruptive behaviors since admission. refusing medications. sleeping. continue to offer medications. 05/08: same presentation as yesterday, although per RN report now taking meds. c/o shoulder pain, start lidocaine patch and ibu PRN. otherwise continue current mgmt. 05/09. Continue plan of care. DC 05/11. 05/10: DC to family home 05/11 [facility], OP team in place. Reason for continued inpatient stay Substantial Risk for: stable for discharge Time Spent With Patient Time: Total time managing care of this patient today ____ minutes.
[2024-05-10 20:00] VITALS: BP 103/60; PULSE 88; RESP 16; TEMP 37.7; O2SAT 97
[2024-05-10] MEDS: QUEtiapine Fumarate 50 MG TABLET PO (20:34)
[2024-05-11] MEDS: lamoTRIgine 25 MG TABLET PO (08:59)
--- NOTE | 2024-05-24 13:22 | PM.PSYDC ---
DS: Providers Provider Date of Service: 05/11/24 Date of admission: 05/05/24 12:06 Date of discharge: 05/11/24 Primary care physician: Unknown Physician Admitting clinician: Bhargavi Cash Attending physician on admission: Ryan Rodriguez Attending physician on discharge: Ryan Rodriguez Discharging clinician: Bhargavi Cash DS: Diagnosis Discharge Diagnosis (1) Schizoaffective disorder, bipolar type: Status: Acute DS: Medications Discharge Medications Home Medications: Home Medications ?Medication ?Instructions ?Recorded ?Confirmed risperidone microspheres 50 mg/2 50 mg IM Q2W 05/05/24 05/05/24 mL intramuscular susp,ext release (Risperdal Consta) Previous Rx's ?Medication ?Instructions ?Recorded acetaminophen 325 mg tablet 650 mg (2 x 325 mg) PO Q6H PRN 05/10/24 Headache/Pain, Scale 1-10 #0 tabs bupropion HCl 300 mg 24 hr tablet, 300 mg PO DAILY #30 tabs 05/10/24 extended release ibuprofen 600 mg tablet 600 mg PO Q6H PRN shoulder pain #0 05/10/24 tabs lamotrigine 25 mg tablet 25 mg PO DAILY #30 tabs 05/10/24 lidocaine 4 % topical patch 1 patch transdermal DAILY PRN 05/10/24 (Lidocaine Pain Relief) shoulder pain #30 ea olanzapine 5 mg tablet 5 mg PO TID PRN agitation #30 tabs 05/10/24 quetiapine 50 mg tablet 50 mg PO BEDTIME sleep disorder 05/10/24 #30 tabs trazodone 50 mg tablet 50 mg PO BEDTIME MRX1 PRN Insomnia 05/10/24 #30 tabs Mental Status Exam Mental Status Exam Patient Appearance: Fatigued Patient Orientation: Person, Place, Time and Situation Level of Consciousness: Alert Patient Behavior: Talkative, Cooperative and Good Eye Contact Mood Description: Constricted Affect Description: Constricted Patient Cognition Impaired: No Ability to Follow Directions: Good Speech Pattern: Spontaneous Speech Memory Description: Remote Impaired Delusions: Present Thought Process: Distracted Thought Content: positive for [place], positive for Circumstantial, positive for Suicidal Ideation (denies) and positive for Homicidal Ideation (denies) Judgement: Fair DS: Summary Hospital Course Hospital Course: Admission to adult psychiatry for exacerbation of schizoaffective disorder and cocaine use disorder. Pt found [place] on [id number] staring at a truck. He is from [place] and it was reported he was off medications for several months. He was found to be disoriented, delusional, hypersexual and with the belief he was Luc[place]. Pt allowed some medications to be started. He was able to utilize the milieu to recompensate and will return to his family and care team in [place] for ongoing care. Status at Discharge Functional status at discharge: independent ambulation Overall status at discharge: patient is progressing back to baseline Time Spent with Patient Time attestation: Total time managing care of this patient today ____ minutes. Time spent: Less than 30 minutes Discharge Plan Discharge Anticipated Discharge Date/Time: 05/11/24 12:00 Patient Disposition: Home, Self-Care Discharge Diagnosis: Schizoaffective Disorder Cocaine Use Disorder Referrals: [facility] Psychiatry with Dr. Dang [Other] - 05/12/24 9:30 am [facility] Elisa Marion RN [Other] - 05/17/24 9:30 am (Risperdal Injection) [facility] Bobbin Stripper [Other] - 3-5 Days (Contact German to connect to community providers and services. ) Physician,Unknown J [Primary Care Provider] - 1 Week Discharge Medications: New acetaminophen 325 mg Tablet 650 mg PO Q6H PRN (Reason: Headache/Pain, Scale 1-10) Qty: 0 0RF olanzapine 5 mg Tablet 5 mg PO TID PRN (Reason: agitation) Qty: 30 0RF ibuprofen 600 mg Tablet 600 mg PO Q6H PRN (Reason: shoulder pain) Qty: 0 0RF lidocaine [Lidocaine Pain Relief] 4 % Adhesive Patch,Medicated 1 patch transdermal DAILY PRN (Reason: shoulder pain) Qty: 30 0RF Protocol: Apply to: Apply to: left shoulder trazodone 50 mg Tablet 50 mg PO BEDTIME MRX1 PRN (Reason: Insomnia) Qty: 30 0RF Continued risperidone microspheres [Risperdal Consta] 50 mg/2 mL suspension,extended rel recon 50 mg IM Q2W bupropion HCl 300 mg tablet extended release 24 hr 300 mg PO DAILY Qty: 30 0RF quetiapine 50 mg tablet 50 mg PO BEDTIME Qty: 30 0RF Changed lamotrigine 25 mg tablet 25 mg PO DAILY Qty: 30 0RF Discharge Orders: Discharge Order (Routine); Ordered 05/11/24 Ordered By: Bhargavi Cash Diet: Advance to usual diet Activity on Discharge: As tolerated Stand Alone Forms: Patient Portal Discharge page, Community Support Print Language: Portuguese Care Plan Goals: Mood and Behavioral Stabilization Abstinence from Substances Health Concerns: Mood and Behavioral Stabilization Abstinence from Substances Plan of Treatment: Attend scheduled appointments Take medications as directed Abstain from substance use Assessment: No SI,HI,AH,VH Discharge Date/Time: 05/11/24 09:19
== END 2024-05-11 09:19 | disposition home or self-care (01) | DRG 885 ==
LOC: HO.ED 11:03 → HO.PM5 12:13
PROVIDERS: Clinical Nurse Specialist Psychiatric/Mental Health, Adult; Admitting Provider Psychiatry & Neurology Psychiatry; Emergency Provider Emergency Medicine; Visit Provider Psychiatry & Neurology Psychiatry
DX: F25.0 Schizoaffective disorder, bipolar type (principal); F14.90 Cocaine use, unspecified, uncomplicated; F17.210 Nicotine dependence, cigarettes, uncomplicated; Z71.6 Tobacco abuse counseling; Z79.899 Other long term (current) drug therapy
CPT/HCPCS: 36415; 80053; 80061; 80143; 80179; 80307; 81001; 82607; 82746; 83036; 83735; 84439; 84443; 84484; 85025; 93005; 99285; J1200; J1630; J2060; S9485

== ENCOUNTER → 2024-05-05 00:32 | Outpatient (BNV) | payer MEDICAID, SELFPAY | PROVIDERS: Admitting Provider Psychiatry & Neurology Psychiatry; Emergency Provider Emergency Medicine; Visit Provider Internal Medicine Cardiovascular Disease | DX: R94.31 Abnormal electrocardiogram [ECG] [EKG] (principal); R41.82 Altered mental status, unspecified | CPT/HCPCS: 93010 ==

== ENCOUNTER → 2024-05-05 12:06 | Outpatient (BNV) | payer MEDICAID, SELFPAY | PROVIDERS: Admitting Provider Psychiatry & Neurology Psychiatry; Emergency Provider Emergency Medicine; Visit Provider Psychiatry & Neurology Psychiatry | DX: F25.0 Schizoaffective disorder, bipolar type (principal) | CPT/HCPCS: 90792; 99231; 99232 ==